=== PATIENT | male | born 1940 | race Two or more races ===

== ENCOUNTER 2018-01-11 08:35 | Outpatient (CLI) | payer OTHER | END 2018-01-11 08:57 | disposition HB | LOC: LAB 08:35 | DX: E83.110 Hereditary hemochromatosis (principal); D75.1 Secondary polycythemia; E06.3 Autoimmune thyroiditis; H40.9 Unspecified glaucoma; I10 Essential (primary) hypertension; N40.1 Benign prostatic hyperplasia with lower urinary tract symptoms; N20.0 Calculus of kidney; G47.33 Obstructive sleep apnea (adult) (pediatric); D50.8 Other iron deficiency anemias; D51.8 Other vitamin B12 deficiency anemias; E03.8 Other specified hypothyroidism ==